=== PATIENT | male | born 1980 | race Asian ===

== ENCOUNTER 2017-03-05 16:40 | Outpatient (CLI) | payer OTHER ==
--- NOTE | 2017-03-06 09:16 | XRAY Report ---
FRONTAL CHEST: 03/05/2017 CLINICAL INDICATION: Positive QuantiFERON Gold. FINDINGS: Frontal view of the chest demonstrates a normal cardiac silhouette. The lungs are clear. No effusion or pneumothorax is present. IMPRESSION: NORMAL CHEST. NO EVIDENCE OF ACTIVE TUBERCULOSIS. JOB #: [id number] EXT JOB #:[id number]
== END 2017-03-05 16:41 | disposition home or self-care (01) ==
LOC: DI 16:40
PROVIDERS: ATTEND Nurse Practitioner Family
DX: R78.89 Finding of other specified substances, not normally found in blood (principal)
CPT/HCPCS: 71010